=== PATIENT | female | born 1940 | race Caucasian/White ===

== ENCOUNTER → 2017-03-31 | Outpatient (CLI) | payer OTHER | LOC: BRMIMAGING 11:24 | PROVIDERS: ATTEND Internal Medicine | DX: Z12.31 Encounter for screening mammogram for malignant neoplasm of breast (principal) | CPT/HCPCS: G0202 ==

== ENCOUNTER 2017-09-08 19:02 | Emergency (ER) | payer OTHER ==
[2017-09-08 19:22] VITALS: BP 144/76; PULSE 82; RESP 14; TEMP 98.8; O2SAT 97
--- NOTE | 2017-09-08 19:24 | EDPHY ---
H & P Time Seen by Provider: 09/08/17 19:21 HPI/ROS: 77-year-old female presents complaining of frequent urination and burning with urination that began earlier today. She denies fevers or chills she denies back pain she denies abdominal pain she denies nausea vomiting or diarrhea. Review of systems As per HPI General no fever no chills no weakness HEENT no eye pain no eye discharge. No eye redness, no sore throat Respiratory no cough, no shortness of breath Cardiac no chest pain, no peripheral edema GI no abdominal pain, no diarrhea, no constipation, no nausea, no vomiting no flank pain, no hematuria, positive dysuria Musculoskeletal no myalgias, no joint pain Heme no easy bruising, no easy bleeding Endo no polyuria, no polydipsia Skin no rashes, no pruritus Neuro no syncope, no dizziness, no headaches Psych is no suicidal ideation, no homicidal ideation Past Medical/Surgical History: Hypothyroidism UTI Social History: No alcohol drugs of or tobacco. Smoking Status: Never smoked Physical Exam: [age] year old Female alert and oriented in no acute distress nontoxic appearance, afebrile Atraumatic normocephalic Neck supple Lungs clear to auscultation bilaterally Heart regular rate and rhythm Abdomen normoactive bowel sounds soft mild suprapubic tenderness no guarding no rebound Back no CVA tenderness Extremities no cyanosis clubbing or edema Skin no rash Constitutional: Initial Vital Signs Temperature (C) 37.1 C 09/08/17 19:19 Heart Rate 82 09/08/17 19:19 Respiratory Rate 14 09/08/17 19:19 Blood Pressure 144/76 H 09/08/17 19:19 O2 Sat (%) 97 09/08/17 19:19 O2 Delivery Mode Room Air Allergies/Adverse Reactions: Sulfa (Sulfonamide Antibiotics) Allergy (Verified 09/08/17 19:17) eye drops Allergy (Uncoded 09/08/17 19:17) Home Medications: Medication Instructions Recorded LEVOTHYROXINE SODIUM [Tirosint 01/31/15 50mcg] Cephalexin 500 mg PO BID #10 tablet 09/08/17 Phenazopyridine HCl 200 mg PO TID #6 tab 09/08/17 [Phenazopyridine] Medical Decision Making ED Course/Re-evaluation: Patient seen and evaluated for urinary frequency and burning with urination. Urinalysis Positive for leuk esterase, WBCs, bacteria, RBCs Impression UTI Plan Cephalexin 5 mg p.o. twice daily x7 days Pyridium 200 mg three times daily x2 days Follow up with primary care physician Return as needed for high fever, back pain, nausea vomiting. Differential Diagnosis: UTI, pyelonephritis - Data Points Laboratory Results: 09/08/17 19:20 Urine Color OTHER Urine Appearance CLOUDY Urine pH 7.0 (5.0-7.5) Ur Specific [place] 1.010 (1.002-1.030) Urine Protein TRACE H (NEGATIVE) Urine Ketones NEGATIVE (NEGATIVE) Urine Blood 3+ H (NEGATIVE) Urine Nitrate NEGATIVE (NEGATIVE) Urine Bilirubin NEGATIVE (NEGATIVE) Urine Urobilinogen 0.2 EU EU (0.2-1.0) Ur Leukocyte Esterase 1+ H (NEGATIVE) Urine RBC 50-182 /hpf H /hpf (0-3) Urine WBC 15-25 /hpf H /hpf (0-3) Ur Epithelial Cells 1+ /lpf /lpf (NONE-1+) Urine Bacteria 1+ /hpf H /hpf (NONE SEEN) Urine Glucose NEGATIVE (NEGATIVE) Medications Given: Discontinued Medications Cephalexin (Keflex 500 Mg Prepack#4) 1 btl TAKEHOME EDNOW ONE PRN Reason: Protocol Stop: 09/08/17 19:37 Last Admin: 09/08/17 19:50 Dose: 1 btl Departure - Departure Disposition: Home, Routine, Self-Care Clinical Impression: Urinary tract infection Condition: Good Instructions: Urinary Tract Infection in Women (ED) Referrals: Rosalba Nick MD [Primary Care Provider] - As per Instructions Prescriptions: Cephalexin 500 mg PO BID #10 tablet Phenazopyridine HCl [Phenazopyridine] 200 mg PO TID #6 tab
[2017-09-08 19:31] LABS: LEUKOCYTE ESTERASE,URINE 1+ (NEGATIVE); NITRITE,URINE NEGATIVE (NEGATIVE)
[2017-09-08 19:33] LABS: COLOR OTHER
[2017-09-08] MEDS ORDERED: CEPHALEXIN 500MG PREPACK#4 BTL TAKEHOME ONE (19:36)
[2017-09-08 19:47] LABS: BACTERIA 1+ /hpf (NONE SEEN); RBC,URINE 50-182 /hpf (0-3); WBC,URINE 15-25 /hpf (0-3)
== END 2017-09-08 20:00 | disposition home or self-care (01) ==
LOC: CED 19:02
DX: N39.0 Urinary tract infection, site not specified (principal); B96.89 Other specified bacterial agents as the cause of diseases classified elsewhere
CPT/HCPCS: 81003-PO; 81015-PO

== ENCOUNTER → 2018-04-18 | Outpatient (CLI) | payer OTHER | LOC: BRMIMAGING 13:29 | PROVIDERS: ATTEND Internal Medicine | DX: Z12.31 Encounter for screening mammogram for malignant neoplasm of breast (principal) ==

== ENCOUNTER → 2018-05-31 | Outpatient (CLI) | payer OTHER | LOC: CIMAGING 16:17 | PROVIDERS: ATTEND Internal Medicine | DX: M11.261 Other chondrocalcinosis, right knee (principal); M25.761 Osteophyte, right knee; M25.461 Effusion, right knee | CPT/HCPCS: 73562-PO ==

== ENCOUNTER → 2018-08-27 | Outpatient (CLI) | payer OTHER | LOC: FIMAGING 10:40 | PROVIDERS: ATTEND Internal Medicine | DX: M50.321 Other cervical disc degeneration at C4-C5 level (principal); M50.33 Other cervical disc degeneration, cervicothoracic region; M48.02 Spinal stenosis, cervical region; M43.12 Spondylolisthesis, cervical region; E04.1 Nontoxic single thyroid nodule ==

== ENCOUNTER 2018-09-13 10:16 | Inpatient (IN) | payer OTHER ==
[2018-09-13] MEDS ORDERED: CHLORHEXIDINE GLUC HIBICLENS 118 ML BTL TP ONE (10:40)
[2018-09-13] MEDS ORDERED: BUPIVACAINE 0.25% 30 ML SDV ONE (10:41)
[2018-09-13] MEDS ORDERED: CITRATE DEXTROSE SOLN 500 ML BAG ONE (10:41)
[2018-09-13] MEDS ORDERED: THROMBIN (BOVINE) 20,000 UNIT SPRAY TP ONE (10:41)
[2018-09-13] MEDS ORDERED: EPINEPHrine 1 MG/ML INJ ONE (10:42)
[2018-09-13] MEDS ORDERED: BACITRACIN 50,000 UNITS/10 ML SYR IRR ONE (10:43)
[2018-09-13] MEDS ORDERED: ceFAZolin 2 GM/DEXTROSE 100 ML IV ONE (10:50)
[2018-09-13] MEDS ORDERED: ACETAMINOPHEN 500 MG TAB PO ONE (10:50)
[2018-09-13] MEDS ORDERED: morphINE PF 0.2 MG in SYRINGE INTRATHECAL 1 SYR IT ONE (10:50)
[2018-09-13] MEDS ORDERED: GABAPENTIN 300 MG CAP PO ONE (10:50)
--- NOTE | 2018-09-13 10:53 | PDHPUP ---
History & Physical Update H&P update statement: This history and physical update is based on an assessment of the patient which was completed after admission or registration (within 24 hours), but prior to the surgery/procedure. H&P update: H&P reviewed & patient examined, no change in patient's condition since H&P completed (Consents signed and site marked. All questions answered.)
[2018-09-13] MEDS ORDERED: LR 1,000 ML IV ONE (11:17)
[2018-09-13] MEDS ORDERED: PROPOFOL/EMULSION 500 MG/50 ML BOTTLE IV ONE ×3 (11:53)
[2018-09-13] MEDS ORDERED: fentaNYL 100 MCG/2 ML INJ ONE ×2 (11:53→15:41)
[2018-09-13] MEDS ORDERED: SUCCINYLCHOLINE CHLORIDE 200 MG/10 ML SYR IVP ONE (11:55)
[2018-09-13] MEDS ORDERED: REMIFENTANIL HCL 2 MG VIAL ONE (12:02)
[2018-09-13] MEDS ORDERED: diphenhydrAMINE 25 MG CAP PO PRN (12:12)
[2018-09-13] MEDS ORDERED: BISACODYL 10 MG SUPP PR PRN (12:12)
[2018-09-13] MEDS ORDERED: LACTULOSE 20 GM/30 ML UDCUP PO PRN (12:12)
[2018-09-13] MEDS ORDERED: MAGNESIUM HYDROXIDE 30 ML UDCUP PO PRN (12:12)
[2018-09-13] MEDS ORDERED: ONDANSETRON 4 MG/2 ML VIAL ONE (12:45)
[2018-09-13] MEDS ORDERED: DEXAMETHASONE 4 MG/ML VIAL ONE ×2 (12:45)
[2018-09-13] MEDS ORDERED: ROCURONIUM 50 MG/5 ML VIAL ONE (12:45)
[2018-09-13] MEDS ORDERED: RANITIDINE 50 MG/2 ML VIAL ONE (12:45)
--- NOTE | 2018-09-13 12:46 | PDMN ---
Medical Necessity [place] [facility] [place] OP: TLIF L4-S1 with lami AUTH #[id number] FOR CPT [id number], VALID FROM ADMIN - DISCHARGE PER REP. DONE IN PT
--- NOTE | 2018-09-13 13:40 | POSTOPPROG ---
Post Op Note Date of Operation: 09/13/18 Surgeon: Shahram Trujillo Sales Director: MARILIN Soriano PAC Anesthesia: GET(General Endotracheal) Pre-op Diagnosis: Lumbar stenosis, spondylothesis, radiculopathy Post-op Diagnosis: Lumbar stenosis, spondylothesis, radiculopathy Indication: Lumbar stenosis, spondylothesis, radiculopathy Procedure: L4-S1 lami/TLIF, L4-S1 PSF Inf/Abcess present in the surg proc area at time of surgery?: No Drains: Ruslan SHORE Addendum - Addendum .: S: low back pain O: NAD A&Ox3 MAEx4 5/5 and equal in BUE and BLE. Sensation intact to light touch A/P 78y/o female s/p L4-S1 lami/TLIF, L4-S1 PSF -Advance diet as tolerated -Post op xrays pending -PT/OT -Optmize pain management -JPx1 -DVT prophx: TEDs, SCDs, Lovenox okay POD1 -Please notify NS with any change on neuro/motor exam
[2018-09-13] MEDS ORDERED: TEARS/DEXTRAN 70/HYPROMELLOSE 15 ML OPHT.BTL EACHEYE PRN (13:41)
[2018-09-13] MEDS ORDERED: ONDANSETRON 4 MG/2 ML VIAL IVP PRN (14:01)
[2018-09-13] MEDS ORDERED: NALOXONE HCL 0.4 MG/ML INJ IVP PRN (14:01)
[2018-09-13] MEDS ORDERED: oxyCODONE IR 5 MG TAB PO PRN (14:01)
[2018-09-13] MEDS ORDERED: PROMETHAZINE HCL 25 MG/ML INJ IVP PRN (14:01)
--- NOTE | 2018-09-13 14:01 | PDANEPAE ---
ANE History of Present Illness TLIF ANE Past Medical History - Cardiovascular History Hx Hypertension: No Hx Arrhythmias: No Hx Chest Pain: No Hx Coronary Artery / Peripheral Vascular Disease: No Hx CHF / Valvular Disease: No Hx Palpitations: No - Pulmonary History Hx COPD: No Hx Asthma/Reactive Airway Disease: No Hx Recent Upper Respiratory Infection: No Hx Oxygen in Use at Home: No Hx Sleep Apnea: No Sleep Apnea Screening Result - Last Documented: Negative - Neurologic History Hx Cerebrovascular Accident: No Hx Seizures: No Hx Dementia: No Neurologic History Comment: bilateral hands get numb and tingly, left shoulder burning pain, burning in toes, right leg pain from low back - Endocrine History Hx Diabetes: No Endocrine History Comment: hypothyroid - Renal History Hx Renal Disorders: No - Liver History Hx Hepatic Disorders: No - Neurological & Psychiatric Hx Hx Neurological and Psychiatric Disorders: No - Cancer History Hx Cancer: No - Congenital Disorder History Hx Congenital Disorders: No - GI History Hx Gastrointestinal Disorders: Yes Gastrointestinal History Comment: acid reflux - Other Health History Other Health History: wears glasses for reading. upper denture. lower bridge - Chronic Pain History Chronic Pain: Yes (left shoulder pain, legs) - Surgical History Prior Surgeries: bilat rotator cuff repairs. right bicep tendon pin. multiple finger surgery for tendon issues. left knee for crushed patella. tonsillectomy ANE Review of Systems Review of Systems: - Exercise capacity METS (RN): 4 METS ANE Patient History - Allergies Allergies/Adverse Reactions: Sulfa (Sulfonamide Antibiotics) Allergy (Verified 08/25/18 10:50) Hives Glaucoma Eye Drops Allergy (Uncoded 09/01/18 10:23) burning, blurry vision, 'felt like rocks in my eyes' - Home Medications Home Medications: Aspirin [Aspirin 81mg (*)] 81 mg PO HS 08/25/18 [Last Taken 1 Week Ago ~09/06/18 ] Herbals/Supplements -Info Only 1 ea PO DAILY 08/25/18 [Last Taken 1 Week Ago ~] Levothyroxine [Synthroid 50 mcg (*)] 50 mcg PO DAILY06 08/25/18 [Last Taken 06:00] Propylene Glycol/Peg 400/Pf [Systane Ultra 0.4-0.3% Eye Drp] 1 each OP PRN PRN 08/25/18 [Last Taken Unknown] Omeprazole 20 mg PO DAILY 09/01/18 [Last Taken 09/13/18 06:00] - NPO status NPO Since - Liquids (Date): 09/13/18 NPO Since - Liquids (Time): 08:30 NPO Since - Solids (Date): 09/12/18 NPO Since - Solids (Time): 18:00 - Smoking Hx Smoking Status: Never smoked - Family Anes Hx Family Hx Anesthesia Complications: none ANE Labs/Vital Signs - Vital Signs Blood Pressure: 137/74 Heart Rate: 67 Respiratory Rate: 16 O2 Sat (%): 99 Height: 154.94 cm Weight: 49.895 kg ANE Physical Exam - Airway Neck exam: FROM Mallampati Score: Class 2 Mouth exam: dentures - Pulmonary Pulmonary: clear to auscultation - Cardiovascular Cardiovascular: regular rate and rhythym - ASA Status ASA Status: II ANE Anesthesia Plan Anesthesia Plan: general endotracheal anesthesia Total IV Anesthesia: Yes
[2018-09-13] MEDS ORDERED: PHENYLEPHRINE HCL 100 MCG/ML SYR ONE (14:49)
--- NOTE | 2018-09-13 15:41 | POSTANESTH ---
Post Anesthetic Evaluation Cardiovascular Status: Normal, Stable Respiratory Status: Normal, Stable Level of Consciousness/Mental Status: Can Participate in Eval, Mildly Sleepy, Arousable Pain Control: Adequate, Prn Tx Ordered Nausea/Vomiting Control: Adequate, Prn Tx Ordered Complications Possibly Related to Anesthesia: None Noted
[2018-09-13] MEDS: fentaNYL 100 MCG/2 ML INJ IVP PRN ×3 (15:44→16:02)
--- NOTE | 2018-09-13 16:19 | GOP ---
DATE OF OPERATION: 09/13/2018 SURGEON: Shahram Trujillo MD AUDIO VISUAL DESIGN ENGINEER: VIVIAN Colmenares ANESTHESIA: General. PREOPERATIVE DIAGNOSIS: 1. L4-L5 severe spinal stenosis and grade 1 spondylolisthesis. 2. L5-S1 spondylosis. 3. Right lower extremity radiculopathy. 4. Treatment refractory to nonoperative intervention. POSTOPERATIVE DIAGNOSIS: 1. L4-L5 severe spinal stenosis and grade 1 spondylolisthesis. 2. L5-S1 spondylosis. 3. Right lower extremity radiculopathy. 4. Treatment refractory to nonoperative intervention. PROCEDURE PERFORMED: 1. Posterior arthrodesis with approach to L4, L5, and S1. 2. Posterolateral fusion with bilateral pedicle screw placement at L4, L5, and S1 from the Tivixra 4.75 system. 3. Decompressive laminectomy with bilateral medial facetectomies, L4-L5 and L5- S1. 4. Right-sided L4-L5 facetectomy and transforaminal lumbar interbody fusion with an 8 x 26 mm titanium-coated PEEK cage filled with morselized autograft and allograft. 5. Right-sided L5-S1 facetectomy and transforaminal lumbar interbody fusion with a 6 x 26 mm titanium-coated PEEK cage filled with morselized autograft and allograft. 6. Posterolateral fusion on the left between L4 and S1 with morselized autograft and allograft. 7. Use of intraoperative 3D Stealth navigation. 8. Use of intraoperative fluoroscopy, less than 1 hour physician time. 9. Use of neuromonitoring. 10. Use of the operative microscope. 11. Injection of preservative-free intrathecal narcotics. FINDINGS: per imaging SPECIMENS: None. ESTIMATED BLOOD LOSS: 150 mL INDICATIONS: The patient is a very pleasant 78-year-old woman who presented to my office with low back pain and right lower extremity radiculopathy. She had evidence of severe spinal stenosis L4-5 with a grade 1 spondylolisthesis as well as spondylosis L5-S1 and foraminal stenosis on the right side L4-5 and L5- S1. After discussion of the risks, benefits, and treatment alternatives and after failing nonoperative intervention, we decided to proceed forth with surgery as described above. DESCRIPTION OF PROCEDURE: The patient was brought to operating theater and underwent general endotracheal anesthesia without complications. She had Venodynes, AVI hose, and the appropriate lines placed by Anesthesia. She was flipped prone onto the Ruslan table. All bony processes inspected and padded. The lower lumbar region was prepped and draped in the usual sterile surgical fashion. A time-out was completed per protocol. The patient received antibiotics within 1 hour of incision. Using lateral fluoroscopy and a spinal needle, we picked our entry point to the L4 through S1 levels. This was marked in the midline. The incision was infiltrated with Marcaine with epinephrine. The incision was taken down with a scalpel blade and then using the monopolar, taken down the midline through the lumbodorsal fascia. A subperiosteal dissection was carried out to the transverse processes of L4, L5, and S1. Care was taken to preserve the bilateral L3-4 facet joint. Deep retractors were placed to maintain exposure. We confirmed our level using lateral fluoroscopy. We attached the 3D Stealth to the spinous process of L5 and completed a 3D Stealth navigation spin. Using 3D Stealth navigation we placed the pilot instructor holes for the bilateral pedicle screws in L4, L5, and S1. All holes were manually palpated with no evidence of any cortical breaches. We then tapped and placed 6.5 x 45 mm screw on the left at L4, bilaterally at L5 and right-sided S1, a 6.5 x 50 mm screw in the right L4 , left side S1 all from [employer] 4.75 system. Another 3D Stealth navigation spin demonstrated good position of the hardware. At this point, the microscope was brought into the field to assist with microscopic dissection and to maintain illumination and magnification. Using a combination of the bur tip on the drill bit, Kerrison punches, Leksell rongeur, we completed decompressive laminectomy with bilateral medial facetectomies, L4- L5 and L5-S1. We also completed aggressive facetectomies on the right side at L4-L5, L5-S1. We then distracted the L4-L5 disk space and completed a right- sided L4-L5 diskectomy. We prepared the cartilaginous endplates and measured interbody space. We placed an 8 x 26 mm titanium-coated PEEK cage fiilled with morselized autograft and allograft anteriorly and toward the midline. We packed additional morcellized autograft in the disk space for the interbody fusion. We let down distraction and moved down to the L5-S1 level. We distracted the L5-S1 disk space and completed a right-sided L5-S1 diskectomy. We prepared the cartilaginous endplates and measured the interbody space. We placed a 6 x 26 mm titanium-coated PEEK cage filled with morselized autograft and allograft anteriorly and toward the midline. We packed additional morcellized autograft in the disk space for the interbody fusion. We let down the distraction and decorticated the bone on the left side between L4 and S1. The wound was irrigated copiously with bacitracin irrigation. We placed 2 lordotic rods into the heads of the screws between L4 and S1 and secured them down with cap screws, which were then tightened per the rerecording mixer's setting. We placed morselized autograft and allograft on the right side between L4 and S1 for the posterolateral fusion. We injected preservative-free intrathecal narcotics. A drain was left in the subfascial space. The wound then closed in multiple layers using Vicryl sutures for the deep layers and Dermabond for the skin. The patient's wounds were dressed sterilely. She was flipped supine onto the transfer cart. She was awakened, extubated, and taken to the recovery room in stable condition. There were no complications and no noted changes on neuromonitoring throughout the procedure. COMPLICATIONS: None. /[id number]/MODL MTDD
[2018-09-13] MEDS: ACETAMINOPHEN 500 MG TAB PO SCH ×2 (18:47→23:25)
[2018-09-13] MEDS: NS 1,000 ML IV SCH (18:48)
[2018-09-13] MEDS: METHOCARBAMOL 750 MG TAB PO PRN (18:51)
[2018-09-13] MEDS: FAMOTIDINE 20 MG TAB PO SCH (19:58)
[2018-09-13] MEDS: SENNOSIDES/DOCUSATE SODIUM TAB PO SCH (19:59)
[2018-09-13] MEDS: ceFAZolin 2 GM/DEXTROSE 100 ML IV SCH (20:00)
[2018-09-13] MEDS: ONDANSETRON 4 MG/2 ML VIAL IVP PRN (23:33)
[2018-09-14] MEDS: ACETAMINOPHEN 500 MG TAB PO SCH ×3 (05:13→21:54)
[2018-09-14] MEDS: LEVOTHYROXINE 50 MCG TAB PO SCH (05:14)
[2018-09-14] MEDS: ceFAZolin 2 GM/DEXTROSE 100 ML IV SCH (05:14)
--- NOTE | 2018-09-14 07:45 | NEUSURGPN ---
Date of Surgery: 09/13/18 Post Op Day: 1 Assessment/Plan: 78y/o female s/p L4-S1 lami/TLIF, L4-S1 PSF - neuro stable - pain control - postop x-rays pending - EDOUARD drain x 1 - PT/OT - wear brace when out of bed - SCDs/TEDs, Lovenox - Please call neurosurgery with any changes in neuro status/exam Discussed with Dr. Trujillo. Subjective: Doing well this morning. No lower extremity pain, numbness, tingling. Back pain controlled. Objective: Awake. Alert. PERRL. EOMI Facial expression symmetrical Speech fluent Muscle strength 5/5 Sensation intact Catheter Insertion Date: 09/13/18 - Physician Discussed Patient with : Ronnie Neurosurgery Physical Exam - Vitals, I&O, Labs I and O 09/13/18 09/14/18 09/15/18 05:59 05:59 05:59 Intake Total 2000 Output Total 1810 Balance 190 Weight 49.895 kg Intake: Oral (ml) 250 IV Intake (ml) 1750 Output: Urine (ml) 1400 Catheter 1400 Estimated Blood Loss (ml) 150 EDOUARD Drain Output (ml) 260 Back Ruslan Kuhn 260 Other: Number of Voids Catheter 1 Vital Signs Temp Pulse Resp BP Pulse Ox 36.8 C 73 17 94/49 L 99 09/14/18 07:40 09/14/18 07:40 09/14/18 07:40 09/14/18 07:40 09/14/18 07:40 ICD10 Worksheet Patient Problems: Problems Problem Status Onset Lumbar stenosis Acute - ICD10 Problem Qualifiers (1) Lumbar stenosis
[2018-09-14] MEDS: FAMOTIDINE 20 MG TAB PO SCH ×2 (08:06→21:55)
[2018-09-14] MEDS: SENNOSIDES/DOCUSATE SODIUM TAB PO SCH ×2 (08:07→21:53)
[2018-09-14] MEDS: PANTOPRAZOLE SODIUM 40 MG TAB PO SCH (08:07)
[2018-09-14] MEDS: NS 1,000 ML IV SCH (08:08)
[2018-09-14] MEDS: METHOCARBAMOL 750 MG TAB PO PRN ×2 (09:19→22:00)
[2018-09-14] MEDS: ONDANSETRON DISINTEGRATING 4 MG TAB PO PRN (09:44)
[2018-09-14] MEDS: traMADol 50 MG TAB PO PRN ×2 (13:21→19:17)
[2018-09-14] MEDS: ONDANSETRON 4 MG/2 ML VIAL IVP PRN (14:20)
--- NOTE | 2018-09-14 15:54 | ASMTCMCOM ---
CM Note CM Note Notes: Patient s/p L4-S1 Lami/TLIF, L4-S1 PSF. Met with patient and daughter today. Patient is doing quite well. She lives at home with her with whom is around 24/7. Both daughters live close by and will be assisting after discharge. Patient does not feel she needs home health care at this time. D/W RN who is in agreement with this plan. CM available for changes/needs. Plan: Home with family. Date Signed: 09/14/2018 03:53 PM Electronically Signed By:Sherri Simms RN
[2018-09-14] MEDS ORDERED: NS 1,000 ML IV SCH (16:00)
[2018-09-14] MEDS: ENOXAPARIN 40 MG/0.4 ML SYR SC SCH (17:50)
[2018-09-15] MEDS: traMADol 50 MG TAB PO PRN ×2 (04:11→10:38)
[2018-09-15] MEDS: LEVOTHYROXINE 50 MCG TAB PO SCH (06:15)
[2018-09-15] MEDS: ACETAMINOPHEN 500 MG TAB PO SCH ×3 (06:16→16:37)
[2018-09-15] MEDS: METHOCARBAMOL 750 MG TAB PO PRN ×2 (07:47→14:07)
[2018-09-15] MEDS: SENNOSIDES/DOCUSATE SODIUM TAB PO SCH ×2 (07:47→20:32)
[2018-09-15] MEDS: POLYETHYLENE GLYCOL 3350 17 GM PKT PO PRN (07:48)
[2018-09-15] MEDS: PANTOPRAZOLE SODIUM 40 MG TAB PO SCH (07:48)
[2018-09-15] MEDS: ENOXAPARIN 40 MG/0.4 ML SYR SC SCH (07:49)
[2018-09-15] MEDS: FAMOTIDINE 20 MG TAB PO SCH ×2 (07:55→20:31)
--- NOTE | 2018-09-15 08:55 | NEUSURGPN ---
Assessment/Plan: A/P 78y/o female s/p L4-S1 lami/TLIF, L4-S1 PSF POD2 -Post op xrays demonstrate intact hardware -PT/OT -Optimize pain management -JPx1, may d/c later this afternoon depending on output -DVT prophx: TEDs, SCDs, Lovenox okay POD1 -Please notify NS with any change on neuro/motor exam Subjective: low back pain Objective: NAD A&Ox3 MAEx4 5/5 and equal in BUE and BLE. Sensation intact to light touch Catheter Insertion Date: 09/13/18 - Physician Discussed Patient with : Ronnie Neurosurgery Physical Exam - Vitals, I&O, Labs I and O 09/14/18 09/15/18 09/16/18 05:59 05:59 05:59 Intake Total 1999 1150 Output Total 1810 1330 Balance 190 -180 Weight 49.895 kg Intake: Oral (ml) 250 700 IV Intake (ml) 1750 IV Infused (ml) 450 Ns 1,000 ml @ 75 mls/hr 450 IV CONT QUAN Rx#: [id number] Output: Urine (ml) 1400 900 Catheter 1400 Toilet 900 Estimated Blood Loss (ml) 150 Emesis (ml) 350 EDOUARD Drain Output (ml) 260 80 Back Ruslan Kuhn 260 80 Other: Output Comment Toilet missed hat Number of Voids Catheter 1 Toilet 1 Bladder Scan Volume (ml) Catheter 307 Toilet 706 Vital Signs Temp Pulse Resp BP Pulse Ox 36.9 C 76 16 119/62 1 L 09/15/18 07:57 09/15/18 07:57 09/15/18 07:57 09/15/18 07:57 09/15/18 07:57 ICD10 Worksheet Patient Problems: Problems Problem Status Onset Lumbar stenosis Acute
[2018-09-15] MEDS: oxyCODONE IR 5 MG TAB PO PRN (20:31)
[2018-09-15] MEDS: ONDANSETRON DISINTEGRATING 4 MG TAB PO PRN (20:32)
[2018-09-16] MEDS: METHOCARBAMOL 750 MG TAB PO PRN ×4 (02:24→21:18)
[2018-09-16] MEDS: oxyCODONE IR 5 MG TAB PO PRN ×6 (02:24→19:38)
[2018-09-16] MEDS: ONDANSETRON DISINTEGRATING 4 MG TAB PO PRN (02:25)
[2018-09-16] MEDS: ACETAMINOPHEN 500 MG TAB PO SCH ×3 (05:56→21:18)
[2018-09-16] MEDS: LEVOTHYROXINE 50 MCG TAB PO SCH (05:57)
--- NOTE | 2018-09-16 07:24 | NEUSURGPN ---
Assessment/Plan: A/P 78y/o female s/p L4-S1 lami/TLIF, L4-S1 PSF POD3 -Post op xrays demonstrate intact hardware -PT/OT -Optimize pain management, will add in gabapentin this morning -JPx1, may d/c later this afternoon depending on output -DVT prophx: TEDs, SCDs, Lovenox -Please notify NS with any change on neuro/motor exam Subjective: new right hip/leg pain Objective: NAD A&Ox3 MAEx4 5/5 and equal in BUE and BLE. Sensation intact to light touch Catheter Insertion Date: 09/13/18 - Physician Patient Seen by : Ronnie Neurosurgery Physical Exam - Vitals, I&O, Labs I and O 09/15/18 09/16/18 09/17/18 05:59 05:59 05:59 Intake Total 1150 250 Output Total 1330 1400 Balance -180 -1150 Intake: Oral (ml) 700 250 IV Infused (ml) 450 Ns 1,000 ml @ 75 mls/hr 450 IV CONT QUAN Rx#: [id number] Output: Urine (ml) 900 1400 Toilet 900 1400 Emesis (ml) 350 EDOUARD Drain Output (ml) 80 Back Ruslan Kunh 80 Other: Output Comment Toilet missed hat Number of Voids Toilet 1 1 Bladder Scan Volume (ml) Catheter 307 Toilet 706 Vital Signs Temp Pulse Resp BP Pulse Ox 37.0 C 82 16 126/61 H 97 09/15/18 23:17 09/15/18 23:17 09/15/18 23:17 09/15/18 23:17 09/15/18 23:17 ICD10 Worksheet Patient Problems: Problems Problem Status Onset Lumbar stenosis Acute
[2018-09-16] MEDS: GABAPENTIN 100 MG CAP PO SCH ×4 (07:57→21:18)
[2018-09-16] MEDS: PANTOPRAZOLE SODIUM 40 MG TAB PO SCH (10:12)
[2018-09-16] MEDS: SENNOSIDES/DOCUSATE SODIUM TAB PO SCH ×2 (10:12→19:39)
[2018-09-16] MEDS: FAMOTIDINE 20 MG TAB PO SCH ×2 (10:13→19:39)
[2018-09-16] MEDS: ENOXAPARIN 40 MG/0.4 ML SYR SC SCH (10:13)
[2018-09-16] MEDS: POLYETHYLENE GLYCOL 3350 17 GM PKT PO PRN (14:26)
[2018-09-16] MEDS: traMADol 50 MG TAB PO PRN ×2 (14:27→23:24)
--- NOTE | 2018-09-16 16:37 | ASMTLACE ---
LACE Length of stay for Answers: 4-6 days current admission Acuity / Level of Answers: Yes Care: Did the patient have an inpatient admission? Comorbidities - select Answers: Opioid dependence all that apply / Chronic pain Other Notes: Hypothyroid # of Emergency department Answers: 0 visits in the last 6 months Score: 12 Date Signed: 09/16/2018 04:37 PM Electronically Signed By:RICARDO Cabrera
--- NOTE | 2018-09-16 16:38 | ASMTCMCOM ---
CM Note CM Note Notes: Pt medically stable for d/c, no CM d/c needs identified. Date Signed: 09/16/2018 04:37 PM Electronically Signed By:RICARDO Cabrera
[2018-09-17] MEDS: oxyCODONE IR 5 MG TAB PO PRN ×3 (00:42→09:42)
[2018-09-17] MEDS: METHOCARBAMOL 750 MG TAB PO PRN (03:32)
[2018-09-17] MEDS: LEVOTHYROXINE 50 MCG TAB PO SCH (05:20)
[2018-09-17] MEDS: ACETAMINOPHEN 500 MG TAB PO SCH (05:20)
[2018-09-17 08:26] VITALS: BP 101/55
[2018-09-17] MEDS: ENOXAPARIN 40 MG/0.4 ML SYR SC SCH (09:41)
[2018-09-17] MEDS: GABAPENTIN 100 MG CAP PO SCH (09:41)
[2018-09-17] MEDS: PANTOPRAZOLE SODIUM 40 MG TAB PO SCH (09:41)
[2018-09-17] MEDS: FAMOTIDINE 20 MG TAB PO SCH (09:41)
[2018-09-17] MEDS: SENNOSIDES/DOCUSATE SODIUM TAB PO SCH (09:42)
--- NOTE | 2018-09-17 11:07 | NEUSURGPN ---
Assessment/Plan: A/P 78y/o female s/p L4-S1 lami/TLIF, L4-S1 PSF POD4 -Post op xrays demonstrate intact hardware -PT/OT -Optimize pain management, will add in gabapentin this morning -dispo- Home today. Doing well. - Leg pain improving and intermittent, continue gabapentin . -DVT prophx: TEDs, SCDs, Lovenox -Please notify NS with any change on neuro/motor exam Subjective: Leg pain getting better, now more intermittent with activity. Pain well controlled. Objective: NAD A&Ox3 MAEx4 5/ and equal in BUE and BLE. Sensation intact to light touch Catheter Insertion Date: 09/13/18 - Physician Discussed Patient with : Ronnie Neurosurgery Physical Exam - Vitals, I&O, Labs I and O 09/16/18 09/17/18 09/18/18 05:59 05:59 05:59 Intake Total 250 Output Total 1400 200 Balance -1150 -200 Intake: Oral (ml) 250 Output: Urine (ml) 1400 200 Toilet 1400 200 Other: Intake Quantity Yes Sufficient Number of Voids Toilet 1 1 1 Number of Stools Toilet 1 Vital Signs Temp Pulse Resp BP Pulse Ox 36.9 C 76 14 101/55 L 97 09/17/18 08:00 09/17/18 08:00 09/17/18 08:00 09/17/18 08:00 09/17/18 08:00 ICD10 Worksheet Patient Problems: Problems Problem Status Onset Lumbar stenosis Acute
--- NOTE | 2018-09-17 11:45 | ASMTCMCOM ---
CM Note CM Note Notes: Pt medically stable for d/c, no CM d/c needs identified. Date Signed: 09/17/2018 11:45 AM Electronically Signed By:RICARDO Cabrera
== END 2018-09-17 13:05 | disposition home or self-care (01) | DRG 455 ==
LOC: F3N 10:16
PROVIDERS: ADMIT Neurological Surgery; ATTEND Neurological Surgery
DX: M43.16 Spondylolisthesis, lumbar region (principal); M47.27 Other spondylosis with radiculopathy, lumbosacral region; M48.061 Spinal stenosis, lumbar region without neurogenic claudication; M51.16 Intervertebral disc disorders with radiculopathy, lumbar region; E03.9 Hypothyroidism, unspecified; K21.9 Gastro-esophageal reflux disease without esophagitis
CPT/HCPCS: 97116-GP; 97161-GP; 97165-GO; 97530-GO; 97535-GO; C1713; G8978-GP-CJ; G8979-GP-CI; G8987-GO-CK; G8988-GO-CI; J0171; J0330; J0690; J1100; J1650; J2270; J2274; J2370; J2405; J2704; J2780; J3010

== ENCOUNTER → 2018-11-16 | Outpatient (CLI) | payer OTHER | LOC: FIMAGING 09:39 | PROVIDERS: ATTEND Physician Assistant | DX: M43.16 Spondylolisthesis, lumbar region (principal); M47.26 Other spondylosis with radiculopathy, lumbar region; M48.061 Spinal stenosis, lumbar region without neurogenic claudication; Z98.1 Arthrodesis status ==

== ENCOUNTER → 2018-12-05 | Outpatient (CLI) | payer OTHER | LOC: FIMAGING 11-28 18:32 | PROVIDERS: ATTEND Orthopaedic Surgery Sports Medicine | DX: M75.122 Complete rotator cuff tear or rupture of left shoulder, not specified as traumatic (principal); M75.82 Other shoulder lesions, left shoulder; M75.22 Bicipital tendinitis, left shoulder; M19.012 Primary osteoarthritis, left shoulder; M25.412 Effusion, left shoulder ==

== ENCOUNTER → 2018-12-26 | Outpatient (CLI) | payer OTHER | LOC: FLAB 14:36 | PROVIDERS: ATTEND Neurological Surgery | DX: Z98.1 Arthrodesis status (principal) ==

== ENCOUNTER → 2019-02-27 | Outpatient (CLI) | payer OTHER | LOC: FIMAGING 10:38 | PROVIDERS: ATTEND Neurological Surgery | DX: Z09 Encounter for follow-up examination after completed treatment for conditions other than malignant neoplasm (principal); Z98.1 Arthrodesis status; M41.86 Other forms of scoliosis, lumbar region ==